=== PATIENT | female | born 1940 | race Caucasian/White ===

== ENCOUNTER → 2019-01-23 | Outpatient (CLI) | payer OTHER, MEDICARE ==
[~2019-01-23] VITALS: Ht 160 cm; Wt 58.1 kg
[~2019-01-23] MED LIST: AMBROTOSE PO; AMINO ACID1 EACH PO; MULTI VITAMIN1 EACH PO; OMEGA 3 PORT; PRILOSEC OTC20 MG PO; TIMOLOL MA0.25 %/52 OPHTHALMIC; VIACTIV 650 MG1 EACH PO
--- NOTE | 2019-01-26 14:58 | P ---
[facility] [place] [address] PROCEDURE REPORT Name: LEXI CRAWFORD Room #: REG [facility]#: [id number] Admission: 01/23/19 Attend Phys: Romaine Higuera MD Discharge: Date of : 44 Report #: [id number] THIS REPORT FOR: //name// CC: Romaine Castaneda MD PhD Shashank Rinaldi DO DATE OF SERVICE: 01/23/2019 OUTPATIENT COLONOSCOPY BRIEF HISTORY: The patient is a 78-year-old woman with a history of rectal cancer with previous proctectomy with radiation therapy and I believe chemotherapy. She presents for high risk screening colonoscopy. PREOPERATIVE DIAGNOSIS: High risk screening colonoscopy due to history of rectal cancer. POSTOPERATIVE DIAGNOSES: 1. Proximal ascending colon polyps x 3. 2. Polypoid lesion at the level of her anastomosis at the ostomy site. MEDICATIONS: Deep sedation with propofol per anesthesia. SPECIMENS: 1. Polyps x 3, proximal ascending colon. 2. Polyp at colostomy site. ESTIMATED BLOOD LOSS: 3 mL. PROCEDURE: Colonoscopy to cecum and terminal ileum. The ostomy with a snare polypectomy. FINDINGS: Prior to propofol sedation, procedure of colonoscopy was discussed with the patient as well as potential risks and its complications. She indicates she understands and desires to proceed. DESCRIPTION OF PROCEDURE: With the patient in supine position, her head and chest were raised about 15 degrees. Subsequently, digital examination was done of her colostomy. There was noted to be a polypoid lesion on the mucosa side at the level of the colostomy. It was about 15 mm in greatest dimension. It was friable. It had a benign appearance. It likely represents granulation tissue. In addition, there was modest narrowing of her ostomy and I had to use my fifth finger, which dilated the ostomy site to some degree without difficulty. Subsequently, the Olympus hybrid video colonoscope was introduced into the [facility] [address] [address] PROCEDURE REPORT Name: LEXI CRAWFORD Room #: [facility]#: [id number] Admission: 01/23/19 Attend Phys: Romaine Higuera MD Discharge: Date of : 44 Report #: [id number] ostomy and advanced to the cecum under direct vision. It was done with minimal difficulty. The cecum was identified by the ileocecal valve and the appendiceal orifice. I was able to visualize the distal segment of the terminal ileum, which was inspected and noted to be unremarkable. At that point, the scope was slowly withdrawn and careful circumferential views were obtained including retroflexing the scope in the ascending colon. As we withdrew the scope, she was found to have 3 polyps in the proximal ascending colon. Two were diminutive polyps, removed with biopsy forceps. One was a flat polyp about 8 mm in greatest dimension and removed by cold snare polypectomy. The scope was further withdrawn and the prep was noted to be good. The mucosa was within normal limits, normal vascular pattern, normal light reflex. No additional mucosal abnormalities were seen. The remainder of the colon was unremarkable until the level of the colostomy was reached. The polypoid lesion was seen. We then removed it with multiple passes of cold polypectomy snare. Some of the edges were cleaned up with biopsy forceps. We then used argon plasma coagulation and treated the site. There was good hemostasis. No further bleeding was encountered. It was felt the lesion had been completely removed. Scope was withdrawn. The patient tolerated the procedure well. CONDITION OF THE PATIENT UPON DISCHARGE: Following procedure, the patient drowsy, aroused, conversant and will be discharged home when fully ambulatory. INSTRUCTIONS TO THE PATIENT AND FAMILY AT THE TIME OF DISCHARGE: Four polyps removed today. The one at the level of the ostomy may be granulation tissue. We will follow up on pathology and make further recommendations. Suggest return in 3 years for followup colonoscopy. <ELECTRONICALLY SIGNED> By: Romaine Higuera MD 01/26/19 1458 [id number] [id number] Romaine Higuera MD /roberto
--- NOTE | 2019-02-06 14:06 | PATH ---
[facility] [place] [address] PATHOLOGY RPT PROCEDURE Name: LEXI CRAWFORD Room #: REG [facility]#: [id number] Admission: 01/23/19 Date of : 44 Discharge: Report #: [id number] Path Case #: [id number] [facility] Accession Number: [id number] . 01 Material submitted: . PART A: colon - POLYP AT PROXIMAL ASCENDING COLON X3. Modifiers: proximal, ascending PART B: colon - POLYP AT ANASTOMOSIS . 01 Clinical history: . History colon cancer, colon polyps . 02 Diagnosis: A. "Polyp at proximal ascending colon x3", biopsy: - Tubular adenoma; no high-grade dysplasia. . B. 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 (SEE COMMENT). . (CASSIUS:eleuterio; 01/26/2019) MBR 01/26/2019 1138 Local . 02 Comment: Part B is co-reviewed with Dr. Leila Mendoza. Clinical and endoscopic correlation is required. The case is discussed with Ericka nurse with Dr. Romaine Higuera on 01/27/19 at approximately 10:30 AM. (CLW:eleuterio; 01/26/2019) . 02 Addendum: . MICROSATELLITE INSTABILITY REPORT (MSI): . Per the [facility] Cancer Committee criteria, mismatch repair (MMR) protein immunohistochemical staining was performed. . Specimen: Formalin fixed paraffin embedded tissue Specimen ID: [id number] Block B1 Reason for testing: To evaluate for evidence of defective mismatch repair proteins. Method: Immunohistochemical staining for the presence or absence of protein expression of one or more of the following MMR protein markers: MLH1, MSH2, MSH6 and PMS2. Tumor type: Invasive adenocarcinoma, moderate to well differentiated, with prominent mucinous features . Results: MLH1 - Preserved [address] [address] PATHOLOGY RPT PROCEDURE Name: LEXI CRAWFORD Room #: REG [facility]#: [id number] Admission: 01/23/19 Date of : 44 Discharge: Report #: [id number] Path Case #: [id number] MSH2 - Preserved MSH6 - Preserved PMS2 - Preserved . Mismatch Repair Status: MMR Proficient (MMR-P) . Interpretation: . (MMR-P) All four MMR proteins are preserved within tumor cells. This suggests the presence of normal DNA mismatch repair function within the tumor and an observable defect in mismatch repair is not identified. The likelihood that this patient has an inherited germline mutation syndrome due to defective mismatch repair is reduced but not totally eliminated. If the patient has a strong personal or family history of HPNCC/Israel syndrome related cancers (colorectal, endometrial, gastric, ovarian, pancreatic, ureter/renal pelvis, biliary tract, brain, small bowel and Jennifer-Oumar syndrome), consider MSI testing by PCR methodology. Suggest clinical correlation and follow up. (CLW/db; 02/05/2019) . These test results are designed for screening purposes only and are useful tools in identifying cancer patients that are more likely to have Israel Syndrome related diagnoses. Tests should be interpreted in the context of clinical findings, family history and laboratory data. Abnormal IHC results for MMR protein expression are not considered diagnostic for Israel Syndrome. . Professional services performed by [facility] at [facility], [address] [place] [id number]. Technical services performed by [address], [address], [place] [address]. QMS/02/06/2019 Addendum Electronically Signed by Jenifer Esposito MD, Pathologist . 02 Electronically signed: . Jenifer Esposito MD, Pathologist NPI- [id number] . 01 Gross description: . A. The specimen is received in formalin, labeled "Lexi Crawford, polyp at proximal ascending colon BX 3", are three fowler rubbery polyps measuring 0.9 x 0.4 cm (inked black and trisected and two 0.3 cm in greatest dimension each. The specimen is entirely submitted in A1. . B. The specimen is received in formalin, labeled "Lexi Crawford, polyp at anastomosis", is a fowler rubbery polyp measuring 1.0 x 0.4 x 0.2 cm, inked black and trisected. The specimen is entirely submitted in B1. (SWS; 01/23/2019) [facility] [address] [place] [address] PATHOLOGY RPT PROCEDURE Name: LEXI CRAWFORD Room #: [facility]#: [id number] Admission: 01/23/19 Date of : 44 Discharge: Report #: [id number] Path Case #: [id number] SHS/SHS 01/23/20192023 Local . 02 Pathologist provided ICD-10: D12.2, C18.9, Z85.038 . 02 CPT . 475233, 980314, Y26277, U17905 Specimen Comment: A courtesy copy of this report has been sent to Specimen Comment: [phone], . Specimen Comment: Report sent to / DR SONG Performed at: [address] [facility], [place] [id number] MD Madhu Yates MD Phone: [phone] Performed at: [address] [id number] MD Leila Mendoza MD Phone: [phone]
== END | disposition home or self-care (01) ==
LOC: GI 08:10
DX: Z12.11 Encounter for screening for malignant neoplasm of colon (principal); Z85.038 Personal history of other malignant neoplasm of large intestine; C18.9 Malignant neoplasm of colon, unspecified; D12.2 Benign neoplasm of ascending colon; K21.9 Gastro-esophageal reflux disease without esophagitis; Z98.890 Other specified postprocedural states; Z79.899 Other long term (current) drug therapy; Z98.0 Intestinal bypass and anastomosis status; Z88.2 Allergy status to sulfonamides; Z88.8 Allergy status to other drugs, medicaments and biological substances
CPT/HCPCS: 62110; 62900